=== PATIENT | female | born 1985 | race Caucasian/White ===

== ENCOUNTER → 2017-05-24 | Outpatient (CLI) | payer BC ==
[2017-05-24 23:59] LABS: ABSOLUTE BASOPHILS # (AUTO) 0.1 10^3/uL (0.0-0.2); ABSOLUTE EOSINOPHILS # (AUTO) 0.1 10^3/uL (0.0-0.6); ABSOLUTE LYMPHOCYTES (AUTO) 2.1 10^3/uL (0.5-4.7); ABSOLUTE MONOCYTES (AUTO) 0.4 10^3/uL (0.1-1.4); ABSOLUTE NEUT (AUTO) 5.2 10^3/uL (1.7-8.2); BASOPHILS % (AUTO) 0.7 % (0-2); EOSINOPHILS % (AUTO) 1.4 % (0-6); HEMATOCRIT 37.8 % (36.0-47.0); HEMOGLOBIN 12.7 g/dL (12.0-15.5); HGB HCT DIFFERENCE 0.3; LYMPHOCYTES % (AUTO) 26.6 % (13-45); MEAN CORPUSCULAR HEMOGLOBIN 27.4 pg (27.0-33.4); MEAN CORPUSCULAR HGB CONC 33.6 g/dL (32.0-36.0); MEAN CORPUSCULAR VOLUME 82 fl (80-97); MONOCYTES % (AUTO) 5.2 % (3-13); RED BLOOD COUNT 4.63 10^6/uL (3.72-5.28); RED CELL DISTRIBUTION WIDTH 16.4 % (11.5-14.0); SEGMENTED NEUTROPHILS % (AUTO) 66.1 % (42-78); WHITE BLOOD COUNT 7.9 10^3/uL (4.0-10.5)
[2017-05-25 02:07] LABS: FERRITIN 7.69 ng/mL (6.2-137.0)
== END ==
LOC: LAB 23:19
PROVIDERS: ATTEND Family Medicine
DX: D50.9 Iron deficiency anemia, unspecified (principal)
CPT/HCPCS: 36415; 82728; 83540; 83550; 85025

== ENCOUNTER → 2017-09-10 | Outpatient (CLI) | payer BC ==
[2017-09-10 05:39] LABS: HEMATOCRIT 34.9 % (36.0-47.0); HEMOGLOBIN 11.6 g/dL (12.0-15.5); MEAN CORPUSCULAR HEMOGLOBIN 27.4 pg (27.0-33.4); MEAN CORPUSCULAR HGB CONC 33.3 g/dL (32.0-36.0); MEAN CORPUSCULAR VOLUME 82 fl (80-97); PLATELET COUNT 286 10^3/uL (150-450); RED BLOOD COUNT 4.23 10^6/uL (3.72-5.28); RED CELL DISTRIBUTION WIDTH 13.9 % (11.5-14.0); WHITE BLOOD COUNT 7.1 10^3/uL (4.0-10.5)
== END ==
LOC: LAB 04:52
PROVIDERS: ATTEND Obstetrics & Gynecology
DX: N92.0 Excessive and frequent menstruation with regular cycle (principal)
CPT/HCPCS: 36415; 85027; 86900; 86901

== ENCOUNTER 2017-11-14 23:06 | Emergency (ER) | payer BC ==
[2017-11-14] MEDS ORDERED: ONDANSETRON HCL INJ/PF 4 MG/2 ML SDV IV ONE ×2 (23:11→23:20)
[2017-11-14] MEDS ORDERED: MEDROXYPROGESTERONE ACET 10 MG TABLET PO ONE (23:13)
[2017-11-14] MEDS ORDERED: ONDANSETRON 4 MG TAB.RAPDIS PO ONE (23:17)
--- NOTE | 2017-11-14 23:17 | ER Document Report ---
ED General - General Stated Complaint: OTHER Time Seen by Provider: 11/14/17 23:11 Notes: Patient is a 32 year old female with past medical history of dysfunctional uterine bleeding who had a uterine ablation 3 weeks ago for vaginal hemorrhage. Patient states she was tolerating the postprocedural timeframe well without any significant vaginal bleeding. She states approximately 1 week ago she had a very small amount of spotting when her menstrual cycle should have come on. She states over the last several hours she has had progressively worsening vaginal bleeding that is saturated through 3-4 pads in the past 1 hour. She states when she stood up from her chair at work that blood gushed down her leg prompting her to be evaluated. Patient has a history of heavy vaginal bleeding the past but states that has never been this severe. She notes an associated cramping, intermittently worsening lower abdominal pain. Nothing improves or worsens her symptoms. TRAVEL OUTSIDE OF THE [place] IN LAST 30 DAYS: No - Related Data Allergies/Adverse Reactions: ketamine Adverse Reaction (Severe, Verified 11/15/17 01:15) Past Medical History - General Information source: Patient - Social History Smoking Status: Never Smoker Frequency of alcohol use: None Drug Abuse: None Family History: Reviewed & Not Pertinent Review of Systems - Review of Systems Notes: Constitutional: Negative for fever. HENT: Negative for sore throat. Eyes: Negative for visual changes. Cardiovascular: Negative for chest pain. Respiratory: Negative for shortness of breath. Gastrointestinal: Positive for abdominal cramping Genitourinary: Positive for vaginal bleeding Musculoskeletal: Negative for back pain. Skin: Negative for rash. Neurological: Negative for headaches, weakness or numbness. 10 point ROS negative except as marked above and in HPI. Physical Exam - Vital signs Interpretation: Tachycardic Notes: PHYSICAL EXAMINATION: GENERAL: Moderately anxious, appears somewhat uncomfortable but in no acute distress HEAD: Atraumatic, normocephalic. EYES: Pupils equal round and reactive to light, extraocular movements intact, sclera anicteric, conjunctiva are normal. ENT: nares patent, oropharynx clear without exudates. Moderately dry mucous membranes. NECK: Normal range of motion, supple without lymphadenopathy LUNGS: Breath sounds clear to auscultation bilaterally and equal. No wheezes rales or rhonchi. HEART: Regular tachycardia without murmurs ABDOMEN: Soft, mild tenderness to the suprapubic and bilateral adnexal regions otherwise no localized areas of tenderness, normoactive bowel sounds. No guarding, no rebound. No masses appreciated. : External vaginal exam shows heavy vaginal bleeding with passage of clots EXTREMITIES: Normal range of motion, no pitting or edema. No cyanosis. NEUROLOGICAL: No focal neurological deficits. Moves all extremities spontaneously and on command. PSYCH: Moderately anxious SKIN: Warm, Dry, normal turgor, no rashes or lesions noted. Course - Re-evaluation Re-evalutation: 11/14/17 23:12 Patient presents after having a uterine ablation 3 weeks ago for heavy menstrual cycles. Patient reports that she was doing well until she began having very heavy bleeding several hours ago. She reports that she is gone through 4 pads in less than 1 hour. She notes that she had a very small amount of spotting 1 week ago when she was due for her menstrual cycle but did not have her typical period. On examination, patient has a moderate amount of active vaginal bleeding. No focal abdominal tenderness. Vitals otherwise within acceptable limits. Anticipate that the patient is having ongoing dysfunctional uterine bleeding after a uterine ablation. Will give a dose of Zofran, begin on Provera for 10 days. Also obtain a CBC and serum test to evaluate for degree of anemia and sure that she is not . 11/15/17 00:41 CBC does not show any significant anemia however the patient continues to bleed heavily, has bled through 3 bed pads in less than 1 hour. Intermittently has bouts of tachycardia with associated abdominal cramping. Toradol has not been effective for her pain and she does report a severe amount of vomiting and nausea with use of narcotics. We will therefore try low-dose ketamine to try to control the patient's pain. We will also obtain repeat CBC 3 hours from the initial draw to monitor for the amount of drop in her hemoglobin. 11/15/17 01:54 Patient's pain was well-controlled with low-dose ketamine although she did have an associated anxiety reaction which was well-controlled with IV lorazepam. Transabdominal ultrasound is pending. Repeat CBC will be obtained shortly. 11/15/17 02:43 Repeat CBC does show that the patient had a significant amount of bleeding with her hemoglobin going from 12-10 in 3 hours. Patient's bleeding however has stopped and we have not had a changed a pad for over the past 45 minutes. Patient remains hemodynamically within acceptable limits without tachycardia or hypotension. Pelvis ultrasound does show significant thickening of her endometrial lining currently 2.4 cm. This would be consistent with endometrial hyperplasia with her associated bleeding. Will discuss with the SPORTS TRAINER on-call although I am much reassured by the patient's bleeding having stopped at this time. - Laboratory Result Diagrams: 11/15/17 02:12 Laboratory results interpreted by me: 11/14/17 11/15/17 23:10 02:12 WBC 14.8 H RBC 3.70 L Hgb 10.0 L Hct 29.8 L MCH 26.5 L RDW 14.6 H 14.4 H - Diagnostic Test Radiology reviewed: Reports reviewed Discharge - Discharge Clinical Impression: Dysfunctional uterine bleeding, Vaginal hemorrhage, Abdominal cramping, bilateral lower quadrant, Acute blood loss anemia Condition: Stable Disposition: HOME, SELF-CARE Additional Instructions: Please begin the Provera that was prescribed 10 mg for the next 10 days. Please also begin taking ferrous sulfate 325 mg 3 times daily that you have available to at home for the next 30 days. At that time point please re-check a CBC with your primary care provider or your SPORTS TRAINER. For your pain: Take ibuprofen 600 mg and acetaminophen 1000 mg every 6 hours together as needed for pain. If your pain is not controlled by ibuprofen and Tylenol together you may take the tramadol that is already available to you at home. You need to follow- up with your SPORTS TRAINER in the next 1-3 days. Return immediately if you worsening pain, you began bleeding through more than 2 pads per hour for more than 2 hours , you pass out, have persistent vomiting, develop a fever greater than 100.4F, or any other symptoms that are concerning to you. Prescriptions: Medroxyprogesterone Acet [Provera 10 Mg Tablet] 10 mg PO DAILY #10 tablet Forms: Return to Work
[2017-11-14 23:26] LABS: HEMATOCRIT 36.1 % (36.0-47.0); MEAN CORPUSCULAR HEMOGLOBIN 26.5 pg (27.0-33.4); MEAN CORPUSCULAR HGB CONC 33.2 g/dL (32.0-36.0); MEAN CORPUSCULAR VOLUME 80 fl (80-97); PLATELET COUNT 436 10^3/uL (150-450); RED BLOOD COUNT 4.51 10^6/uL (3.72-5.28); RED CELL DISTRIBUTION WIDTH 14.6 % (11.5-14.0)
[2017-11-15] MEDS ORDERED: KETOROLAC TROMETHAMINE INJ/PF 30 MG/1 ML SDV IV ONE (00:12)
[2017-11-15] MEDS ORDERED: KETAMINE HCL INJ 500 MG/10 ML VIAL IV ONE (00:40)
[2017-11-15] MEDS ORDERED: LORAZEPAM INJ 2 MG/1 ML VIAL ONE (00:56)
[2017-11-15 02:23] LABS: HEMATOCRIT 29.8 % (36.0-47.0); MEAN CORPUSCULAR HGB CONC 33.6 g/dL (32.0-36.0); MEAN CORPUSCULAR VOLUME 81 fl (80-97); PLATELET COUNT 296 10^3/uL (150-450); RED CELL DISTRIBUTION WIDTH 14.4 % (11.5-14.0); WHITE BLOOD COUNT 14.8 10^3/uL (4.0-10.5)
--- NOTE | 2017-11-15 02:35 | RADIOLOGY REPORT (SQ) ---
EXAM DESCRIPTION: U/S NON OB PEL W/DOPPLER CLINICAL HISTORY: 32 years Female, Dysfunctional uterine bleeding COMPARISON: None. TECHNIQUE: Complete pelvic ultrasound with transabdominal imaging. FINDINGS: The uterus measures 9.6 x 4.3 x 4.5. Cervix measures 2.5 cm and closed. Endometrial thickness of 2.4 cm. No myometrial abnormalities identified. No free pelvic fluid identified. Right ovary measures 2.0 x 1.6 x 2.3 cm. Nonspecific enlargement of the ovary measuring 3.9 x 5.3 x 4.5 cm. Limited color and spectral Doppler images demonstrate flow within the ovaries bilaterally. IMPRESSION: 1. Significant thickening of the endometrium measuring 2.4 cm. This may be related to endometrial hyperplasia however other etiologies are not excluded. MRI could provide additional characterization. Gynecological consult recommended. 2. Nonspecific enlargement of the left axillary without focal abnormality identified. Again provide additional characterization.
[2017-11-15 03:28] VITALS: BP 101/68
== END 2017-11-15 03:28 | disposition home or self-care (01) ==
LOC: EEVIPCON 23:06 → ER 23:06
DX: N93.8 Other specified abnormal uterine and vaginal bleeding (principal); R10.32 Left lower quadrant pain; R10.31 Right lower quadrant pain; D62 Acute posthemorrhagic anemia; Z98.890 Other specified postprocedural states
CPT/HCPCS: 99284; 36415; 84703; 85027; 76856; 93976; J3490 ×2; J1885; J2060; J2405